=== PATIENT | female | born 1970 | race Caucasian/White ===

== ENCOUNTER 2017-05-27 12:26 | Emergency (ER) | payer SELFPAY ==
[~2017-05-27] VITALS: Ht 167.6 cm; Wt 77.1 kg
[~2017-05-27 12:26] MED LIST: APAP/BUTALBITAL1 TA1 PO; ESTRADIOL1 M1 PO; FLOMAX 0.4MG C0.4 MG PO; HORMONE PILL; KEFLEX 500MG.500 MG PO; LORTAB 5/500 501 TAB PO; MEDROL 4MG. DOSE4 MG PO; PEN-VK500 MG PO; SINGULAIR10 MG PO; TOPAMAX100 MG PO; VICODIN 5/500 T1 TAB PO; ZOFRAN4 MG PO; ZYRTEC 10MG TAB10 MG PO; [UNRECOGNIZED DRUG - OTHER]
--- NOTE | 2017-05-27 13:11 | Urgent Treatment Center Report ---
History of Present Issue Date/Time Seen by Provider 05/27/17 1308 Visit Reason Pt arrived:Walked Presenting Problem:SORE THORAT Location if Accident: Onset of symptoms date/time:/ or onset unknown for:MEDICAL HX UNKNOWN Have you (or family members/close friends) recently traveled outside the [place]? N If Yes, where/when: Have you had exposure to infectious disease within the past month? TB? Other? Specify: State that she has been having sore throat since yesterday that has continued to get worse over the course of the day. State that her throat was swollen and red and she noticed some blister like areas on her throat. States that she feels achy and thinks she may have strep throat ALLERGIES Coded Allergies: No Known Allergies (05/27/17) Home Medications Active Scripts APAP 325MG/CAFF 40MG/BUTA 50MG (Illdut-Lmhcizlb-Ufei 50-325-40) 1 TAB PO Q6HP PRN pain #20 TAB Prov: 06/03/15 Reported Medications Estradiol 1 MG PO DAILY #30 Montelukast Sodium (Singulair) 10 MG PO QHS Cetirizine Hcl (All Day Allergy) 10 MG PO DAILY History Medical History General Angina: No OR: No Hypertension? No Hyperlipidemia? No CHF? No COPD? No Asthma? No Hernia? No Thyroid Problems? No Hypothyroidism? No CVA? No Seizures? No Diabetes? No UTI? No Stones? No GB Disease: No Hepatitis? No Migraines? Yes Cataracts? No Glaucoma? No MRSA? No TB? No Cancer? No Immunization HX DT/Tetanus 1-4 YRS Surgical Hx Previous Surgery?Y Hysterect HIP RIGHT TUBAL R KNEE Family History Family HX Diabetes No CAD No Hypertension No Hyperlipidemia No Cancer No TB No Social History Smoking Hx Smoker: Never Smoker Tobacco: No Alcohol Alcohol: No Review of Systems All Other Systems Reviewed and Negative ENT throat pain, throat swelling. Physical Exam Vital Signs Vital Signs Date Time Temp Pulse Resp B/P Pulse O2 O2 Flow FiO2 Ox Delivery Rate 05/27 1319 98.1 91 14 140/69 100 05/27 1241 98.1 91 14 140/69 100 General Appearance Patient appears ill, sitting in exam chair Ear, Nose, Throat tonsillar exudate, tonsillar swelling Respiratory Status Yes: trachea midline, chest symmetrical, non tender chest. No: respiratory distress. 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 No Results/Orders Laboratory Tests 05/27/17 1235: Group A Strep Screen DETECTED Current Medication Orders Sig/Giselle Start time Last Medication Dose Route Stop Time Status Admin Penicillin G 1,200,000 UNITS ONCE ONE 05/27 1315 DC 05/27 Benzathine IM 05/27 1316 1317 Penicillin G 0 .STK-MED ONE 05/27 1315 DC Benzathine IM Orders Procedure Date/time Status [facility] STREP SCREEN 05/27 1259 Complete Departure Departure Time of Disposition 1312 Disposition DC Home or Self Care(routine) Clinical Impression Primary Impression: Strep throat Condition STABLE Referrals Kaylin REBOLLAR,Quique Bowers (Family) Patient Instructions DI for Strep Throat, Strep Throat Additional Instructions * Monitor Temp. Tylenol and/or Ibuprofen as needed. ER if fever is no less than 101 despite alternating Tylenol and Ibuprofen * Encourage fluids, water, Gatorade, powerade, pedialyte if infant/toddler/or child * Warm salt water gargles for throat irritation *Warm fluids *Sore throat lozenges *Sleep elevated Discharge Counseling Counseled pt/family regarding diagnosis, test results, medications/RX, home care at 1344
--- NOTE | 2017-05-27 13:11 | Urgent Treatment Center Report ---
History of Present Issue Date/Time Seen by Provider 05/27/17 1308 Visit Reason Pt arrived:Walked Presenting Problem:SORE THORAT Location if Accident: Onset of symptoms date/time:/ or onset unknown for:MEDICAL HX UNKNOWN Have you (or family members/close friends) recently traveled outside the [place]? N If Yes, where/when: Have you had exposure to infectious disease within the past month? TB? Other? Specify: State that she has been having sore throat since yesterday that has continued to get worse over the course of the day. State that her throat was swollen and red and she noticed some blister like areas on her throat. States that she feels achy and thinks she may have strep throat ALLERGIES Coded Allergies: No Known Allergies (05/27/17) Home Medications Active Scripts APAP 325MG/CAFF 40MG/BUTA 50MG (Kaxajl-Vugtggji-Nmig [id number]) 1 TAB PO Q6HP PRN pain #20 TAB Prov: 06/03/15 Reported Medications Estradiol 1 MG PO DAILY #30 Montelukast Sodium (Singulair) 10 MG PO QHS Cetirizine Hcl (All Day Allergy) 10 MG PO DAILY History Medical History General Angina: No PA: No Hypertension? No Hyperlipidemia? No CHF? No COPD? No Asthma? No Hernia? No Thyroid Problems? No Hypothyroidism? No CVA? No Seizures? No Diabetes? No UTI? No Stones? No GB Disease: No Hepatitis? No Migraines? Yes Cataracts? No Glaucoma? No MRSA? No TB? No Cancer? No Immunization HX DT/Tetanus 1-4 YRS Surgical Hx Previous Surgery?Y Hysterect HIP RIGHT TUBAL R KNEE Family History Family HX Diabetes No CAD No Hypertension No Hyperlipidemia No Cancer No TB No Social History Smoking Hx Smoker: Never Smoker Tobacco: No Alcohol Alcohol: No Review of Systems All Other Systems Reviewed and Negative ENT throat pain, throat swelling. Physical Exam Vital Signs Vital Signs Date Time Temp Pulse Resp B/P Pulse O2 O2 Flow FiO2 Ox Delivery Rate 05/27 1319 98.1 91 14 140/69 100 05/27 1241 98.1 91 14 140/69 100 General Appearance Patient appears ill, sitting in exam chair Ear, Nose, Throat tonsillar exudate, tonsillar swelling Respiratory Status Yes: trachea midline, chest symmetrical, non tender chest. No: respiratory distress. 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 No Results/Orders Laboratory Tests 05/27/17 1235: Group A Strep Screen DETECTED Current Medication Orders Sig/Giselle Start time Last Medication Dose Route Stop Time Status Admin Penicillin G 1,200,000 UNITS ONCE ONE 05/27 1315 DC 05/27 Benzathine IM 05/27 1316 1317 Penicillin G 0 .STK-MED ONE 05/27 1315 DC Benzathine IM Orders Procedure Date/time Status [facility] STREP SCREEN 05/27 1259 Complete Departure Departure Time of Disposition 1312 Disposition DC Home or Self Care(routine) Clinical Impression Primary Impression: Strep throat Condition STABLE Referrals Kaylin REBOLLAR,Quique Bowers (Family) Patient Instructions DI for Strep Throat, Strep Throat Additional Instructions * Monitor Temp. Tylenol and/or Ibuprofen as needed. ER if fever is no less than 101 despite alternating Tylenol and Ibuprofen * Encourage fluids, water, Gatorade, powerade, pedialyte if infant/toddler/or child * Warm salt water gargles for throat irritation *Warm fluids *Sore throat lozenges *Sleep elevated Discharge Counseling Counseled pt/family regarding diagnosis, test results, medications/RX, home care at 1344
[2017-05-27 13:19] VITALS: BP 140/69
== END 2017-05-27 13:19 | disposition home or self-care (01) ==
LOC: UTC 12:26
DX: J02.0 Streptococcal pharyngitis (principal)